=== PATIENT | female | born 1965 | race Caucasian/White ===

== ENCOUNTER → 2021-04-29 14:49 | Outpatient (BNVA) | payer OTHER, MEDICAID, SELFPAY | PROVIDERS: PCP Family Medicine; Referring Provider Family Medicine; Visit Provider Psychiatry & Neurology Neurology | DX: G43.109 Migraine with aura, not intractable, without status migrainosus (principal) | CPT/HCPCS: 64615; 99211 ==

== ENCOUNTER → 2021-06-20 09:51 | Outpatient (BNVA) | payer OTHER, MEDICAID, SELFPAY | PROVIDERS: PCP Family Medicine; Visit Provider Nurse Practitioner Family | DX: G43.109 Migraine with aura, not intractable, without status migrainosus (principal); M54.2 Cervicalgia; F41.9 Anxiety disorder, unspecified; Z79.899 Other long term (current) drug therapy | CPT/HCPCS: 99212 ==

== ENCOUNTER → 2021-08-21 11:04 | Outpatient (BNVA) | payer OTHER, MEDICAID, SELFPAY | PROVIDERS: PCP Family Medicine; Visit Provider Nurse Practitioner Family | DX: G43.109 Migraine with aura, not intractable, without status migrainosus (principal); M54.2 Cervicalgia; F41.9 Anxiety disorder, unspecified; Z79.899 Other long term (current) drug therapy | CPT/HCPCS: 99212 ==

== ENCOUNTER → 2021-09-18 09:32 | Outpatient (BNVA) | payer OTHER, MEDICAID, SELFPAY | PROVIDERS: PCP Family Medicine; Visit Provider Psychiatry & Neurology Neurology | DX: G43.109 Migraine with aura, not intractable, without status migrainosus (principal); M54.2 Cervicalgia | CPT/HCPCS: 64615; 99211; J0585 ==

== ENCOUNTER → 2021-11-06 13:39 | Outpatient (BNVA) | payer OTHER, MEDICAID, SELFPAY | PROVIDERS: PCP Family Medicine; Visit Provider Psychiatry & Neurology Neurology | DX: G43.109 Migraine with aura, not intractable, without status migrainosus (principal); G47.33 Obstructive sleep apnea (adult) (pediatric) | CPT/HCPCS: 99212 ==

== ENCOUNTER → 2022-01-22 13:31 | Outpatient (BNVA) | payer OTHER, SELFPAY | PROVIDERS: PCP Family Medicine; Visit Provider Psychiatry & Neurology Neurology | DX: G43.119 Migraine with aura, intractable, without status migrainosus (principal); M54.2 Cervicalgia | CPT/HCPCS: 64615; 99211; J0585 ==

== ENCOUNTER → 2022-05-04 08:44 | Outpatient (BNVA) | payer OTHER, SELFPAY | PROVIDERS: PCP Family Medicine; Visit Provider Psychiatry & Neurology Neurology | DX: G43.119 Migraine with aura, intractable, without status migrainosus (principal); M54.2 Cervicalgia | CPT/HCPCS: 64615; 99211; J0585 ==

== ENCOUNTER → 2022-08-06 13:56 | Outpatient (BNVA) | payer OTHER, SELFPAY | PROVIDERS: PCP Family Medicine; Visit Provider Psychiatry & Neurology Neurology | DX: G43.709 Chronic migraine without aura, not intractable, without status migrainosus (principal) | CPT/HCPCS: 64615; 99211; J0585 ==

== ENCOUNTER 2022-11-26 12:20 | Outpatient (AMB) | payer OTHER, SELFPAY ==
[2022-11-26 12:22] VITALS: BP 148/88; PULSE 83; O2SAT 98
--- NOTE | 2022-11-26 12:22 | A.OFFVIS_ITS ---
Intake Vital Signs 11/26/22 12:22 Height 4 ft 8 in BMI Reason not done Patient refused/unable BP 148/88 H Blood Pressure Location Lt brachial Position Sitting Pulse 83 Pulse Source Pulse Oximeter Pulse Oximetry (%) 98 Oxygen Delivery Method Room Air Intake Visit Reasons: Botox B&B-confirmed Intake Note: Pt presents in office for botox. Manager Of Supply Chain Required: No Allergies amoxicillin [Augmentin] Allergy (Unknown, Verified 11/26/22 12:25) Unknown clavulanic acid [Augmentin] Allergy (Unknown, Verified 11/26/22 12:25) Unknown Medication List - Last Reconciled 11/26/22 by Lisa Ac MD amlodipine 2.5 mg PO DAILY aspirin (Adult Aspirin Regimen) 81 mg PO DAILY cetirizine (Zyrtec) 10 mg PO DAILY PRN cyclobenzaprine 5 mg PO BEDTIME fluticasone propionate 50 mcg/actuation 1 spray intranasal DAILY hydroxyzine HCl 25 mg PO ONCE PRN lisinopril 20 mg PO DAILY omeprazole 20 mg PO DAILY 90 days onabotulinumtoxinA (Botox) 155 units IM rimegepant (Nurtec ODT) 75 mg PO Q OTHER DAY 30 days sertraline 25 mg PO DAILY 90 days HPI HPI Comments History of Present Illness Details ?Chronic Migraines. History of present illness: ? 57y/o female comes for treatment with botox. ??? Most frequent reported adverse reactions following injection of botox for chronic migraine include neck pain (9%), headache(5%), eyelid ptosis(4%), migraine(4%), muscular weakness(4%), musculuskeletal stiffness(4%), bronchitis(3%), injection site pain (3%), musculoskeletal pain(3%), myalgia(3%), facial paresis(2%), HTN(2%) and muscle spasms(2%) were discussed in detail. ??? Botulinum toxin typeA 200units Lot no C [id number] expiration Apr 2025 was diluted with 4 cc of normal saline . ??? Muscles injected- ??? Frontalis 4 sites ??? Procerus 1 site ??? Estate Manager- 2 sites ??? Temporalis- 8 sites ??? Occipitalis- 6 sites ??? Cervical paraspinals- 4 sites ??? Trapezius- 6 sites-10 units each ??? 5 units each in 31 site ??? Total use- 185units ??? Discarded-15units [facility] Medical History delivery delivered Chronic migraine without aura Family History Mother HTN (hypertension) Depression Degenerative arthritis Father HTN (hypertension) High cholesterol Gout Kidney failure History of quadruple bypass Social History Alcohol intake: current Alcohol intake frequency: holidays/special occasions only Patient Tobacco Use Status: Never used Tobacco Review of Systems ENT Reports Normal hearing present Neuro Reports Normal hearing present Physical Exam Vital Signs: Last Vital Signs Pulse 83 11/26/22 12:22 BP 148/88 H 11/26/22 12:22 Pulse Ox 98 11/26/22 12:22 Oxygen Delivery Method Room Air 11/26/22 12:22 Const General: cooperative and comfortable Nutritional Appearance: obese Orientation/consciousness: patient oriented x3 Neck Neck: Yes full ROM and Yes supple Resp Effort & Inspection: normal respiratory effort and able to speak in complete s entences Neuro General: patient oriented x3 Cranial nerves: Yes Bilaterally intact EOM present, Yes Normal facial strength present, Yes Midline tongue present, Yes Normal hearing present, Yes Ability to bilaterally rotate head present and Yes Ability to bilaterally elevate shoulders present Cognition (Neuro): normal cognition Gait exam (Neuro): Normal gait present Psych Appearance: grossly normal Mental Status: mental status grossly normal Speech and movement: Normal speech and movement present Office Procedures Botulinum toxin Injection 61571 - Migraine Procedure code (CPT) selection complete Office Meds onabotulinumtoxinA Performing Provider: Lisa Ac MD Administered by: Lisa Ac MD on 11/26/22 13:21 Dose Route Admin Location Lot Number Expiration Date NDC Director Of Corporate Responsibility 185 unit subcut [id number] 04/29/25 5775-9191-85 ALLERGAN/BOTOX Comments: see HPI Assessment & Plan Assessment & Plan (1) Chronic migraine without aura: Code(s): G43.709 - Chronic migraine without aura, not intractable, without status migrainosus Plan Patient tolerated the procedure well she will call with any new side effects Continue nurtec 75mg qod for breakthrough migraines Orders: Orders AMB Botulinum toxin Injection Today G43.709 - Chronic migraine without aura, not intractable, without status migrainosus Coding Level of Care Code Est Pt Level 1 (97931) Diagnoses Chronic migraine without aura G43.709 CPT Codes Botox Injection - Botox 3: 95520 - Migraine ([id number])
== END 2022-11-26 12:53 | disposition home or self-care (01) ==
PROVIDERS: Visit Provider Psychiatry & Neurology Neurology
DX: G43.709 Chronic migraine without aura, not intractable, without status migrainosus (principal)
CPT/HCPCS: 64615

== ENCOUNTER → 2022-11-26 12:20 | Outpatient (BNVA) | payer OTHER, SELFPAY | PROVIDERS: Visit Provider Psychiatry & Neurology Neurology | DX: G43.709 Chronic migraine without aura, not intractable, without status migrainosus (principal) | CPT/HCPCS: 64615; 99211; J0585 ==

== ENCOUNTER 2023-03-05 12:22 | Outpatient (AMB) | payer OTHER, SELFPAY ==
--- NOTE | 2023-03-05 12:35 | A.OFFVIS_ITS ---
Intake Vital Signs 03/05/23 12:36 Height 4 ft 8 in Weight 177 lb BMI 39.7 BP 160/110 H Blood Pressure Location Lt brachial Position Sitting Pulse 67 Pulse Source Pulse Oximeter Pulse Oximetry (%) 99 Oxygen Delivery Method Room Air Intake Visit Reasons: Botox B&B - Confirmed Allergies amoxicillin [Augmentin] Allergy (Unknown, Verified 03/05/23 12:38) Unknown clavulanic acid [Augmentin] Allergy (Unknown, Verified 03/05/23 12:38) Unknown Medication List - Last Reconciled 03/05/23 by Lisa Ac MD amlodipine 2.5 mg PO DAILY aspirin (Adult Aspirin Regimen) 81 mg PO DAILY cetirizine (Zyrtec) 10 mg PO DAILY PRN cyclobenzaprine 5 mg PO BEDTIME fluticasone propionate 50 mcg/actuation 1 spray intranasal DAILY hydroxyzine HCl 25 mg PO ONCE PRN lisinopril 20 mg PO DAILY omeprazole 20 mg PO DAILY 90 days onabotulinumtoxinA (Botox) 155 units IM rimegepant (Nurtec ODT) 75 mg PO Q OTHER DAY PRN sertraline 25 mg PO DAILY 90 days HPI HPI Comments History of Present Illness Details ?Chronic Migraines. History of present illness: ? 58y/o female comes for treatment with botox. ??? Most frequent reported adverse reactions following injection of botox for chronic migraine include neck pain (9%), headache(5%), eyelid ptosis(4%), migraine(4%), muscular weakness(4%), musculuskeletal stiffness(4%), bronchitis(3%), injection site pain (3%), musculoskeletal pain(3%), myalgia(3%), facial paresis(2%), HTN(2%) and muscle spasms(2%) were discussed in detail. ??? Botulinum toxin typeA 200units Lot no C [id number] expiration June 2025 was diluted with 4 cc of normal saline . ??? Muscles injected- ??? Frontalis 4 sites ??? Procerus 1 site ??? Transportation Lead- 2 sites ??? Temporalis- 8 sites ??? Occipitalis- 6 sites ??? Cervical paraspinals- 4 sites ??? Trapezius- 6 sites-10 units each ??? 5 units each in 31 site ??? Total use- 185units ??? Discarded-15units [facility] Medical History Chronic migraine without aura delivery delivered Family History Mother HTN (hypertension) Depression Degenerative arthritis Father HTN (hypertension) High cholesterol Gout Kidney failure History of quadruple bypass Social History Alcohol intake: current Alcohol intake frequency: holidays/special occasions only Patient Tobacco Use Status: Never used Tobacco Use of substances other than those prescribed or required for medical reasons: No Review of Systems ENT Reports Normal hearing present Neuro Reports Normal hearing present Physical Exam Vital Signs: Last Vital Signs Pulse 67 03/05/23 12:36 BP 160/110 H 03/05/23 12:36 Pulse Ox 99 03/05/23 12:36 Oxygen Delivery Method Room Air 03/05/23 12:36 BMI result Body Mass Index 39.7 Const General: cooperative and comfortable Nutritional Appearance: obese Orientation/consciousness: patient oriented x3 Neck Neck: Yes full ROM and Yes supple Resp Effort & Inspection: normal respiratory effort and able to speak in complete sentences Neuro General: patient oriented x3 Cranial nerves: Yes Bilaterally intact EOM present, Yes Normal facial strength present, Yes Midline tongue present, Yes Normal hearing present, Yes Ability to bilaterally rotate head present and Yes Ability to bilaterally elevate shoulders present Cognition (Neuro): normal cognition Gait exam (Neuro): Normal gait present Psych Appearance: grossly normal Mental Status: mental status grossly normal Speech and movement: Normal speech and movement present Office Procedures Botulinum toxin Injection 85163 - Migraine Procedure code (CPT) selection complete Office Meds onabotulinumtoxinA 200 unit solution for injection Performing Provider: Lisa Ac MD Performing Location: [facility] [place] [facility] Administered by: Lisa Ac MD on 03/05/23 13:06 Dose Route Admin Location Dispensed Lot Number Expiration Date [facility] Wader Boot Top Assembler 185 unit subcut 200 units [id number] 06/27/25 1440-6753-76 ALLERGAN/BOTOX Comments: see hpi Assessment & Plan Assessment & Plan (1) Chronic migraine without aura: Code(s): G43.709 - Chronic migraine without aura, not intractable, without status migrainosus Plan Patient tolerated the procedure well she will call with any new side effects Continue nurtec 75mg qod for breakthrough migraines Orders: Orders AMB Botulinum toxin Injection Today G43.709 - Chronic migraine without aura, not intractable, without status migrainosus Coding Level of Care Code Est Pt Level 1 (68784) Diagnoses Chronic migraine without aura G43.709 CPT Codes Botox Injection - Botox 3: 16078 - Migraine ([id number])
[2023-03-05 12:36] VITALS: BP 160/110; PULSE 67; O2SAT 99; BMI 39.7
== END 2023-03-05 13:15 | disposition home or self-care (01) ==
PROVIDERS: PCP Family Medicine; Visit Provider Psychiatry & Neurology Neurology
DX: G43.709 Chronic migraine without aura, not intractable, without status migrainosus (principal)
CPT/HCPCS: 64615

== ENCOUNTER → 2023-03-05 12:22 | Outpatient (BNVA) | payer OTHER, SELFPAY | PROVIDERS: PCP Family Medicine; Visit Provider Psychiatry & Neurology Neurology | DX: G43.709 Chronic migraine without aura, not intractable, without status migrainosus (principal) | CPT/HCPCS: 64615; 99211; J0585 ==

== ENCOUNTER 2023-06-03 12:28 | Outpatient (AMB) | payer OTHER, SELFPAY ==
--- NOTE | 2023-06-03 12:30 | MHC.OFFVIS ---
Intake Vital Signs 06/03/23 12:31 Height 4 ft 8 in Weight 175 lb BMI 39.2 BP 148/90 H Blood Pressure Location Rt brachial Position Sitting Respiration 16 Pulse 89 Pulse Source Pulse Oximeter Pulse Oximetry (%) 97 Oxygen Delivery Method Room Air Intake Visit Reasons: Botox B&B-confirmed Intake Note: Pt presents to the office for Botox injections. Tour Manager Required: No Allergies amoxicillin [Augmentin] Allergy (Unknown, Verified 06/03/23 12:31) Unknown clavulanic acid [Augmentin] Allergy (Unknown, Verified 06/03/23 12:31) Unknown Medication List - Last Reconciled 06/03/23 by Lisa Ac MD amlodipine 2.5 mg PO DAILY aspirin (Adult Aspirin Regimen) 81 mg PO DAILY cetirizine (Zyrtec) 10 mg PO DAILY PRN cyclobenzaprine 5 mg PO BEDTIME fluticasone propionate 50 mcg/actuation 1 spray intranasal DAILY hydroxyzine HCl 25 mg PO ONCE PRN lisinopril 20 mg PO DAILY omeprazole 20 mg PO DAILY 90 days onabotulinumtoxinA (Botox) 155 units IM rimegepant (Nurtec ODT) 75 mg PO Q OTHER DAY PRN sertraline 25 mg PO DAILY 90 days HPI HPI Comments History of Present Illness Details ?Chronic Migraines. History of present illness: ? 58y/o female comes for treatment with botox. ??? Most frequent reported adverse reactions following injection of botox for chronic migraine include neck pain (9%), headache(5%), eyelid ptosis(4%), migraine(4%), muscular weakness(4%), musculuskeletal stiffness(4%), bronchitis(3%), injection site pain (3%), musculoskeletal pain(3%), myalgia(3%), facial paresis(2%), HTN(2%) and muscle spasms(2%) were discussed in detail. ??? Botulinum toxin typeA 200units Lot no C [id number] expiration August 2025 was diluted with 4 cc of normal saline . ??? Muscles injected- ??? Frontalis 4 sites ??? Procerus 1 site ??? Mechanical Process Engineer- 2 sites ??? Temporalis- 8 sites ??? Occipitalis- 6 sites ??? Cervical paraspinals- 4 sites ??? Trapezius- 6 sites-10 units each ??? 5 units each in 31 site ??? Total use- 185units ??? Discarded-15units [facility] Medical History Chronic migraine without aura delivery delivered Family History Mother HTN (hypertension) Depression Degenerative arthritis Father HTN (hypertension) High cholesterol Gout Kidney failure History of quadruple bypass Social History Alcohol intake: current Alcohol intake frequency: holidays/special occasions only Patient Tobacco Use Status: Never used Tobacco Review of Systems ENT Reports Normal hearing present Neuro Reports Normal hearing present Physical Exam Vital Signs: Last Vital Signs Pulse 89 06/03/23 12:31 Resp 16 06/03/23 12:31 BP 148/90 H 06/03/23 12:31 Pulse Ox 97 06/03/23 12:31 Oxygen Delivery Method Room Air 06/03/23 12:31 BMI result Body Mass Index 39.2 Const General: cooperative and comfortable Nutritional Appearance: obese Orientation/consciousness: patient oriented x3 Neck Neck: Yes full ROM and Yes supple Resp Effort & Inspection: normal respiratory effort and able to speak in complete sentences Neuro General: patient oriented x3 Cranial nerves: Yes Bilaterally intact EOM present, Yes Normal facial strength present, Yes Midline tongue present, Yes Normal hearing present, Yes Ability to bilaterally rotate head present and Yes Ability to bilaterally elevate shoulders present Cognition (Neuro): normal cognition Gait exam (Neuro): Normal gait present Psych Appearance: grossly normal Mental Status: mental status grossly normal Speech and movement: Normal speech and movement present Office Procedures Botulinum toxin Injection 36460 - Migraine Procedure code (CPT) selection complete Office Meds onabotulinumtoxinA 200 unit solution for injection Performing Provider: Lisa Ac MD Performing Location: [facility] [place] [facility] Administered by: Lisa Ac MD on 06/03/23 12:57 Dose Route Admin Location Dispensed Lot Number Expiration Date [facility] Bonding Equipment Operator 185 unit subcut 200 units [id number] 08/27/25 7300-8120-36 ALLERGAN/BOTOX Comments: see HPI Assessment & Plan Assessment & Plan (1) Chronic migraine without aura: Code(s): G43.709 - Chronic migraine without aura, not intractable, without status migrainosus Plan Patient tolerated the procedure well she will call with any new side effects Continue nurtec 75mg qod for breakthrough migraines Orders: Orders AMB Botulinum toxin Injection Today G43.709 - Chronic migraine without aura, not intractable, without status migrainosus Coding Level of Care Code Tele Est Pt Level 1 (19597) Diagnoses Chronic migraine without aura G43.709 CPT Codes Botox Injection - Botox 3: 39747 - Migraine ([id number])
[2023-06-03 12:31] VITALS: BP 148/90; PULSE 89; RESP 16; O2SAT 97; BMI 39.2
== END 2023-06-03 12:53 | disposition home or self-care (01) ==
PROVIDERS: PCP Family Medicine; Visit Provider Psychiatry & Neurology Neurology
DX: G43.709 Chronic migraine without aura, not intractable, without status migrainosus (principal)
CPT/HCPCS: 64615; 99211

== ENCOUNTER → 2023-06-03 12:28 | Outpatient (BNVA) | payer OTHER, SELFPAY | PROVIDERS: PCP Family Medicine; Visit Provider Psychiatry & Neurology Neurology | DX: G43.709 Chronic migraine without aura, not intractable, without status migrainosus (principal) | CPT/HCPCS: 64615; J0585 ==

== ENCOUNTER 2023-09-08 12:52 | Outpatient (AMB) | payer OTHER, SELFPAY ==
[2023-09-08 13:01] VITALS: BP 150/90; PULSE 87; RESP 16; O2SAT 96; BMI 39.2
--- NOTE | 2023-09-08 13:01 | MHC.OFFVIS ---
Vital Signs 09/08/23 13:01 Height 4 ft 8 in Weight 175 lb BMI 39.2 BP 150/90 H Blood Pressure Location Rt brachial Position Sitting Respiration 16 Pulse 87 Pulse Source Pulse Oximeter Pulse Oximetry (%) 96 Oxygen Delivery Method Room Air Intake Visit Reasons: Botox - Confirmed Intake Note: Pt presents to the office for Botox injections. Gravure Press Set Up Operator Required: No Allergies amoxicillin [Augmentin] Allergy (Unknown, Verified 09/08/23 13:01) Unknown clavulanic acid [Augmentin] Allergy (Unknown, Verified 09/08/23 13:01) Unknown Medication List - Last Reconciled 09/08/23 by Lisa Ac MD amlodipine 2.5 mg PO DAILY aspirin (Adult Aspirin Regimen) 81 mg PO DAILY cetirizine (Zyrtec) 10 mg PO DAILY PRN cyclobenzaprine 5 mg PO BEDTIME fluticasone propionate 50 mcg/actuation 1 spray intranasal DAILY hydroxyzine HCl 25 mg PO ONCE PRN lisinopril 20 mg PO DAILY omeprazole 20 mg PO DAILY 90 days onabotulinumtoxinA (Botox) 155 units IM rimegepant (Nurtec ODT) 75 mg PO Q OTHER DAY PRN sertraline 25 mg PO DAILY 90 days HPI Comments Details: ?Chronic Migraines. History of present illness: ? 58y/o female comes for treatment with botox. ??? Most frequent reported adverse reactions following injection of botox for chronic migraine include neck pain (9%), headache(5%), eyelid ptosis(4%), migraine(4%), muscular weakness(4%), musculuskeletal stiffness(4%), bronchitis(3%), injection site pain (3%), musculoskeletal pain(3%), myalgia(3%), facial paresis(2%), HTN(2%) and muscle spasms(2%) were discussed in detail. ??? Botulinum toxin typeA 200units Lot no C [id number] expiration August 2025 was diluted with 4 cc of normal saline . ??? Muscles injected- ??? Frontalis 4 sites ??? Procerus 1 site ??? Retail Advertising Sales Manager- 2 sites ??? Temporalis- 8 sites ??? Occipitalis- 6 sites ??? Cervical paraspinals- 4 sites ??? Trapezius- 6 sites-10 units each ??? 5 units each in 31 site ??? Total use- 185units ??? Discarded-15units [facility] Medical History Chronic migraine without aura delivery delivered Family History Mother HTN (hypertension) Depression Degenerative arthritis Father HTN (hypertension) High cholesterol Gout Kidney failure History of quadruple bypass Social History Alcohol intake: current Alcohol intake frequency: holidays/special occasions only Patient Tobacco Use Status: Never used Tobacco Review of Systems ENT Reports Normal hearing present Neuro Reports Normal hearing present Physical Exam Vital Signs: Last Vital Signs Pulse 87 09/08/23 13:01 Resp 16 09/08/23 13:01 BP 150/90 H 09/08/23 13:01 Pulse Ox 96 09/08/23 13:01 Oxygen Delivery Method Room Air 09/08/23 13:01 BMI result Body Mass Index 39.2 Const General: cooperative and comfortable Nutritional Appearance: obese Orientation/consciousness: patient oriented x3 Neck Neck: Yes full ROM and Yes supple Resp Effort & Inspection: normal respiratory effort and able to speak in complete sentences Neuro General: patient oriented x3 Cranial nerves: Yes Bilaterally intact EOM present, Yes Normal facial strength present, Yes Midline tongue present, Yes Normal hearing present, Yes Ability to bilaterally rotate head present and Yes Ability to bilaterally elevate shoulders present Cognition (Neuro): normal cognition Gait exam (Neuro): Normal gait present Psych Appearance: grossly normal Mental Status: mental status grossly normal Speech and movement: Normal speech and movement present Office Procedures Botulinum toxin Injection 91680 - Migraine Procedure code (CPT) selection complete Office Meds onabotulinumtoxinA 200 unit solution for injection Performing Provider: Lisa Ac MD Performing Location: [facility] [place] [facility] Administered by: Lisa Ac MD on 09/08/23 13:26 Dose Route Admin Location Dispensed Lot Number Expiration Date [facility] Strategy Specialist 185 unit IM 200 units [id number] 08/27/25 2820-7963-65 ALLERGAN/BOTOX Comments: see HPI Assessment & Plan Assessment & Plan (1) Chronic migraine without aura: Code(s): G43.709 - Chronic migraine without aura, not intractable, without status migrainosus Category: Medical Plan Patient tolerated the procedure well she will call with any new side effects Continue nurtec 75mg qod for breakthrough migraines Orders: Orders AMB Botulinum toxin Injection Today G43.709 - Chronic migraine without aura, not intractable, without status migrainosus Medications: New onabotulinumtoxinA 200 units IM ONCE 1 ea 0RF G43.709 - Chronic migraine without aura, not intractable, without status migrainosus Coding Level of Care Code Est Pt Level 1 (38310) Diagnoses Chronic migraine without aura G43.709 CPT Codes Botox Injection - Botox 3: 32926 - Migraine ([id number])
== END 2023-09-08 15:47 | disposition home or self-care (01) ==
PROVIDERS: PCP Family Medicine; Visit Provider Psychiatry & Neurology Neurology
DX: G43.709 Chronic migraine without aura, not intractable, without status migrainosus (principal)
CPT/HCPCS: 64615

== ENCOUNTER → 2023-09-08 12:52 | Outpatient (BNVA) | payer OTHER, SELFPAY | PROVIDERS: PCP Family Medicine; Visit Provider Psychiatry & Neurology Neurology | DX: G43.709 Chronic migraine without aura, not intractable, without status migrainosus (principal) | CPT/HCPCS: 64615; 99211; J0585 ==

== ENCOUNTER 2024-01-03 14:10 | Outpatient (AMB) | payer OTHER, SELFPAY ==
--- NOTE | 2024-01-03 14:11 | A.OFFVIS_ITS ---
Vital Signs 01/03/24 14:12 Height 4 ft 8 in Weight 176 lb BMI 39.5 BP 158/98 H Blood Pressure Location Rt brachial Position Sitting Pulse 85 Pulse Source Pulse Oximeter Pulse Oximetry (%) 98 Oxygen Delivery Method Room Air Intake Visit Reasons: BOTOX Construction Administrative Assistant Required: No Accompanied by: Self / Same As Patient Allergies amoxicillin [Augmentin] Allergy (Unknown, Verified 01/03/24 14:13) Unknown clavulanic acid [Augmentin] Allergy (Unknown, Verified 01/03/24 14:13) Unknown Medication List - Last Reconciled 01/03/24 by Lisa Ac MD amlodipine 2.5 mg PO DAILY aspirin (Adult Aspirin Regimen) 81 mg PO DAILY cetirizine (Zyrtec) 10 mg PO DAILY PRN cyclobenzaprine 5 mg PO BEDTIME fluticasone propionate 50 mcg/actuation 1 spray intranasal DAILY hydroxyzine HCl 25 mg PO ONCE PRN lisinopril 20 mg PO DAILY omeprazole 20 mg PO DAILY 90 days onabotulinumtoxinA (Botox) 155 units IM rimegepant (Nurtec ODT) 75 mg PO Q OTHER DAY PRN sertraline 25 mg PO DAILY HPI Comments Details: ?Chronic Migraines. History of present illness: ? 59y/o female comes for treatment with botox. ??? Most frequent reported adverse reactions following injection of botox for chronic migraine include neck pain (9%), headache(5%), eyelid ptosis(4%), migraine(4%), muscular weakness(4%), musculuskeletal stiffness(4%), bronchitis(3%), injection site pain (3%), musculoskeletal pain(3%), myalgia(3%), facial paresis(2%), HTN(2%) and muscle spasms(2%) were discussed in detail. ??? Botulinum toxin typeA 200units Lot no [id number] expiration Feb 2026 was diluted with 4 cc of normal saline . ??? Muscles injected- ??? Frontalis 4 sites ??? Procerus 1 site ??? Certified Hearing Instrument Dispenser- 2 sites ??? Temporalis- 8 sites ??? Occipitalis- 6 sites ??? Cervical paraspinals- 4 sites ??? Trapezius- 6 sites-10 units each ??? 5 units each in 31 site ??? Total use- 185units ??? Discarded-15units [facility] Medical History Chronic migraine without aura delivery delivered Family History Mother HTN (hypertension) Depression Degenerative arthritis Father HTN (hypertension) High cholesterol Gout Kidney failure History of quadruple bypass Social History Alcohol intake: current Alcohol intake frequency: holidays/special occasions only Patient Tobacco Use Status: Never used Tobacco Review of Systems ENT Reports Normal hearing present Neuro Reports Normal hearing present Physical Exam Vital Signs: Last Vital Signs Pulse 85 01/03/24 14:12 BP 158/98 H 01/03/24 14:12 Pulse Ox 98 01/03/24 14:12 Oxygen Delivery Method Room Air 01/03/24 14:12 BMI result Body Mass Index 39.5 Const General: cooperative and comfortable Nutritional Appearance: obese Orientation/consciousness: patient oriented x3 Neck Neck: Yes full ROM and Yes supple Resp Effort & Inspection: normal respiratory effort and able to speak in complete sentences Neuro General: patient oriented x3 Cranial nerves: Yes Bilaterally intact EOM present, Yes Normal facial strength present, Yes Midline tongue present, Yes Normal hearing present, Yes Ability to bilaterally rotate head present and Yes Ability to bilaterally elevate shoulders present Cognition (Neuro): normal cognition Gait exam (Neuro): Normal gait present Psych Appearance: grossly normal Mental Status: mental status grossly normal Speech and movement: Normal speech and movement present Office Procedures Botulinum toxin Injection 74457 - Migraine Procedure code (CPT) selection complete Office Meds onabotulinumtoxinA 200 unit solution for injection Performing Provider: Lisa Ac MD Performing Location: [facility] [place] [facility] Administered by: Lisa Ac MD on 01/03/24 14:59 Dose Route Admin Location Dispensed Lot Number Expiration Date [facility] Cook Relief 200 unit subcut 200 units [id number] 02/26/26 3975-7479-67 ALLERGAN/BOTOX Comments: see HPI Assessment & Plan Assessment & Plan (1) Chronic migraine without aura: Code(s): G43.709 - Chronic migraine without aura, not intractable, without status migrainosus Category: Medical Qualifiers: Status migrainosus presence: without status migrainosus Intractability: intractable Qualified Code(s): G43.719 - Chronic migraine without aura, intractable, without status migrainosus Plan Patient tolerated the procedure well she will call with any new side effects Continue nurtec 75mg qod for breakthrough migraines Orders: Orders AMB Botulinum toxin Injection Today G43.719 - Chronic migraine without aura, intractable, without status migrainosus Medications: New onabotulinumtoxinA 200 units subcut ONCE 1 ea 0RF migraine G43.719 - Chronic migraine without aura, intractable, without status migrainosus Coding Level of Care Code Est Pt Level 1 (67886) Diagnoses Intractable chronic migraine without aura and without status migrainosus G43.719 Status migrainosus presence: without status migrainosus Intractability: intractable CPT Codes Botox Injection - Botox 3: 66358 - Migraine ([id number])
[2024-01-03 14:12] VITALS: BP 158/98; PULSE 85; O2SAT 98; BMI 39.5
== END 2024-01-03 14:40 | disposition home or self-care (01) ==
PROVIDERS: PCP Family Medicine; Visit Provider Psychiatry & Neurology Neurology
DX: G43.719 Chronic migraine without aura, intractable, without status migrainosus (principal)
CPT/HCPCS: 64615

== ENCOUNTER → 2024-01-03 14:10 | Outpatient (BNVA) | payer OTHER, SELFPAY | PROVIDERS: PCP Family Medicine; Visit Provider Psychiatry & Neurology Neurology | DX: G43.719 Chronic migraine without aura, intractable, without status migrainosus (principal) | CPT/HCPCS: 64615; 99211; J0585 ==

== ENCOUNTER 2024-04-04 15:34 | Outpatient (AMB) | payer OTHER, SELFPAY ==
--- NOTE | 2024-04-04 15:37 | A.OFFVIS_ITS ---
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 Accompanied by: Self / Same As Patient Allergies amoxicillin [Augmentin] Allergy (Unknown, Verified 04/04/24 15:40) Unknown clavulanic acid [Augmentin] Allergy (Unknown, Verified 04/04/24 15:40) Unknown Medication List - Last Reconciled 04/05/24 by Lisa Ac MD amlodipine 2.5 mg PO DAILY aspirin (Adult Aspirin Regimen) 81 mg PO DAILY cetirizine (Zyrtec) 10 mg PO DAILY PRN cyclobenzaprine 5 mg PO BEDTIME fluticasone propionate 50 mcg/actuation 1 spray intranasal DAILY hydroxyzine HCl 25 mg PO ONCE PRN lisinopril 20 mg PO DAILY mirtazapine 7.5 mg PO BEDTIME omeprazole 20 mg PO DAILY 90 days onabotulinumtoxinA (Botox) 155 units IM rimegepant (Nurtec ODT) 75 mg PO Q OTHER DAY PRN sertraline 50 mg PO DAILY Do you need a note to return to daycare/school/sports/work: No HPI Comments Details: ?Chronic Migraines. History of present illness: ? 59y/o female comes for treatment with botox. ??? Most frequent reported adverse reactions following injection of botox for chronic migraine include neck pain (9%), headache(5%), eyelid ptosis(4%), migr nae(4%), muscular weakness(4%), musculuskeletal stiffness(4%), bronchitis(3%), injection site pain (3%), musculoskeletal pain(3%), myalgia(3%), facial paresis(2%), HTN(2%) and muscle spasms(2%) were discussed in detail. ??? Botulinum toxin typeA 200units Lot no [id number] expiration Feb 2026 was diluted with 4 cc of normal saline . ??? Muscles injected- ??? Frontalis 4 sites ??? Procerus 1 site ??? Application Security Architect- 2 sites ??? Temporalis- 8 sites ??? Occipitalis- 6 sites ??? Cervical paraspinals- 4 sites ??? Trapezius- 6 sites-10 units each ??? 5 units each in 31 site ??? Total use- 185units ??? Discarded-15units [facility] Medical History Chronic migraine without aura delivery delivered Family History Mother HTN (hypertension) Depression Degenerative arthritis Father HTN (hypertension) High cholesterol Gout Kidney failure History of quadruple bypass Social History Alcohol intake: current Alcohol intake frequency: holidays/special occasions only Patient Tobacco Use Status: Never used Tobacco Review of Systems ENT Reports Normal hearing present Neuro Reports Normal hearing present Physical Exam Vital Signs: Last Vital Signs Pulse 94 04/04/24 15:38 BP 150/100 H 04/04/24 15:38 Pulse Ox 98 04/04/24 15:38 Oxygen Delivery Method Room Air 04/04/24 15:38 BMI result Body Mass Index 38.3 Const General: cooperative and comfortable Nutritional Appearance: obese Orientation/consciousness: patient oriented x3 Neck Neck: Yes full ROM and Yes supple Resp Effort & Inspection: normal respiratory effort and able to speak in complete sentences Neuro General: patient oriented x3 Cranial nerves: Yes Bilaterally intact EOM present, Yes Normal facial strength present, Yes Midline tongue present, Yes Normal hearing present, Yes Ability to bilaterally rotate head present and Yes Ability to bilaterally elevate shoulders present Cognition (Neuro): normal cognition Gait exam (Neuro): Normal gait present Psych Appearance: grossly normal Mental Status: mental status grossly normal Speech and movement: Normal speech and movement present Office Procedures Botulinum toxin Injection 08975 - Migraine Procedure code (CPT) selection complete Office Meds onabotulinumtoxinA 200 unit solution for injection Performing Provider: Lisa Ac MD Performing Location: [facility] Administered by: Lisa Ac MD on 04/05/24 12:37 Dose Route Admin Location Dispensed Lot Number Expiration Date [facility] 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 185 unit IM 200 units 0212-1329-14 ALLERGAN/BOTOX Comments: see HPI Assessment & Plan Assessment & Plan (1) Chronic migraine without aura: Code(s): G43.709 - Chronic migraine without aura, not intractable, without status migrainosus Category: Medical Qualifiers: Status migrainosus presence: without status migrainosus Intractability: intractable Qualified Code(s): G43.719 - Chronic migraine without aura, intractable, without status migrainosus Plan Patient tolerated the procedure well she will call with any new side effects Continue nurtec 75mg qod for breakthrough migraines Orders: Orders AMB Botulinum toxin Injection 04/04/24 G43.719 - Chronic migraine without aura, intractable, without status migrainosus Medications: New mirtazapine 7.5 mg PO BEDTIME 30 tabs 3RF onabotulinumtoxinA 200 units IM ONCE 1 ea 0RF migraine G43.719 - Chronic migraine without aura, intractable, without status migrainosus Coding Level of Care Code Est Pt Level 1 (28423) Diagnoses Intractable chronic migraine without aura and without status migrainosus G43.719 Status migrainosus presence: without status migrainosus Intractability: intractable CPT Codes Botox Injection - Botox 3: 74914 - Migraine ([id number])
[2024-04-04 15:38] VITALS: BP 150/100; PULSE 94; O2SAT 98; BMI 38.3
== END 2024-04-04 16:03 | disposition home or self-care (01) ==
PROVIDERS: PCP Family Medicine; Visit Provider Psychiatry & Neurology Neurology
DX: G43.719 Chronic migraine without aura, intractable, without status migrainosus (principal)
CPT/HCPCS: 64615

== ENCOUNTER → 2024-04-04 15:34 | Outpatient (BNVA) | payer OTHER, SELFPAY | PROVIDERS: PCP Family Medicine; Visit Provider Psychiatry & Neurology Neurology | DX: G43.719 Chronic migraine without aura, intractable, without status migrainosus (principal) | CPT/HCPCS: 64615; 99211; J0585 ==

== ENCOUNTER 2024-05-12 14:02 | Outpatient (AMB) | payer OTHER, SELFPAY ==
--- OUTSIDE RECORDS SUMMARY | 2024-05-12 14:06 | XMS_ITS | Patient Health Record ---
Author Organization [facility] Address [address] [place] [address] Care Team Providers Care Applications Coordinator Name Role Phone AudreyMario Primary Care Provider [phone] Unavailable Unavailable Allergies Allergen (clinical drug ingredient) Drug/Non Drug Allergy documented on EMR Reaction Allergy Type Onset Date Status Erythromycin rash Drug Allergy Acti ve Reason For Referral No Information Medications Medication SIG (Take, Route, Frequency, Duration) Notes Start Date End Date Status Flonase Allergy Relief 50 MCG/ACT 1 spray in each nostril Nasally Once a day Active Fish Oil Paauilo-3 1000 MG 1 capsule Orall y Once a day Active Vitamin B12 100 MCG as directed Orally O nce a day Active Cetirizine HCl 10 MG 1 tablet Orally Onc e a day Active hydrOXYzine HCl 25 MG 1 tablet as needed Orally qhs Active Mzetbithjk-FGEE-Sruqqtja 50-300-40 MG 1 tablet as needed Orally every 4 hrs Active Lisinopril 20 MG 1 tablet Orally qam Active SUMAtriptan Succinate 100 MG 1 tablet at least 2 hours between doses as needed Orally along with 2 ibuprofen Active Rosuvastatin Calcium 5 MG 1 tablet Orally qhs Active acetaZOLAMIDE 250 MG 2 tablet Orally twi ce a day for 30 day(s) Active Aspirin 81 MG 1 tablet Orally Once a day Active Magnesium Oxide 400 MG 1 tablet as neede d Orally Once a day Active Topiramate 100 MG 1 tablet Orally qhs Active Cyclobenzaprine HCl 5 MG 1 tablet at bed time as needed Orally Once a day Active Social History Tobacco Use: Social History Observation Description Date Details (start date - stop date) Never Smoker NA - NA Household Question Answer Notes Marital status: Lives w/ and daughter. 1 dog. Number of adults in household: 3 Tobacco Use/Smoking Question Answer Notes Tobacco use: nonsmoker Problems Problem Type SNOMED Code ICD Code Onset Dates Problem Status W/U Status Risk Notes Problem New daily persistent headache (87856158775119 5) New daily persistent headache (NDPH) (G44.52) Active confirmed Plan Of Treatment Pending Test Test Name Order Date MRI/MRA Head 12/19/2020 Insurance Providers Payer Name Payer Address Payer Phone Subscriber Number Group Number Insured Name Patient Relationship to Insured Coverage Start Date Coverage End Date [facility] [employer] PL[facility] [address] [address] [id number] Maya Dodge Self - patient is the insured Medical (General) History Medical History History ICD Code hypercholesterolemia essential HTN LAUREN renal angiolipoma ovarian cysts Surgical History Surgery Date(Month/Year) section x 2
--- NOTE | 2024-05-12 14:12 | MHC.OFFVIS ---
Vital Signs 05/12/24 14:13 Height 4 ft 8 in Weight 172 lb BMI 38.6 BP 146/110 H Blood Pressure Location Lt brachial Position Sitting Pulse 97 Pulse Source Pulse Oximeter Pulse Oximetry (%) 97 Oxygen Delivery Method Room Air Intake Visit Reasons: Follow Up Accompanied by: Spouse Allergies amoxicillin [Augmentin] Allergy (Unknown, Verified 05/12/24 14:14) Unknown clavulanic acid [Augmentin] Allergy (Unknown, Verified 05/12/24 14:14) Unknown Medication List - Last Reconciled 05/12/24 by CRICKET Gonsalez amlodipine 2.5 mg PO DAILY aspirin (Adult Aspirin Regimen) 81 mg PO DAILY cetirizine (Zyrtec) 10 mg PO DAILY PRN cyclobenzaprine 5 mg PO BEDTIME fluticasone propionate 50 mcg/actuation 1 spray intranasal DAILY hydroxyzine HCl 25 mg PO ONCE PRN lisinopril 20 mg PO DAILY mirtazapine 7.5 mg PO BEDTIME omeprazole 20 mg PO DAILY 90 days onabotulinumtoxinA (Botox) 155 units IM rimegepant (Nurtec ODT) 75 mg PO Q OTHER DAY PRN sertraline 75 mg (1.5 x 50 mg) PO DAILY 30 days HPI Comments Details: 59-yr-old female presents for f/u visit for chronic migraine and dizziness. Pt is accompanied by her . Patient comes to discuss strategies to optimize her headache and dizziness treatment plan. She states optimizing the dizziness would be her priority at this point. Pt reports she continues to wake up every day with a headache. Headache and dizziness worsen as the day progresses, sometimes laying down helps but not always. Baseline headache characteristics: Mostly bifrontal/temporla squeezing, or bilateral frontal, retroorbital, occipital squeezing a/w rare sees kaleidoscope aura (3 times in all), photophobia, phonophobia, osmophobia, allodynia, nausea, worsening dizziness, brain fog, activity intolerance. Denies positional component. She also has episodes of intense, sharp, stabbing pain in random areas around her head. Sometimes her head feels like there is popping inside. She has chronic neck pain and tightness- has been told she has arthritis in the past. The Botox helps to decrease the level of the pain, and the pain increases towards the botox cycle. She is taking Nurtec every other day. Sertraline was increased to 50mg in Jan- did not help depression or dizziness- notes that her father had shortly thereafter.. She was started on mirtazapine 7.5 mg q.h.s. in early March, this has helped her sleep. 32oz iced black tea. Also takes water 64 ounces- approx. She is using her CPAP nightly. PCP ordered brain MRI without contrast in March 2024, which was unremarkable. Since Jan 2024, she has also been having frequent episodes of dizziness- where she feels off-balance, like she will fall over, like someone is pushing her from behind. She has not fallen- but has caught herself. Dizziness is worse when the headaches are worse and are a/w nausea. She believes that the dizziness started after she cleaned out her father's room in her parent's house, which at/has significant mold growth. She does use Flonase and an OTC Afrin- regularly since the onset of the dizziness. She has not had vestibular tx yet. States it would be difficult for her to arrange this, as she has been caring for her mother who has Alzheimer's dementia. [facility] Medical History (Updated 05/12/24 @ 16:28 by CRICKET Gonsalez) Chronic migraine with aura Chronic migraine without aura delivery delivered Family History Mother HTN (hypertension) Depression Degenerative arthritis Father HTN (hypertension) High cholesterol Gout Kidney failure History of quadruple bypass Social History Alcohol intake: current Alcohol intake frequency: holidays/special occasions only Patient Tobacco Use Status: Never used Tobacco Physical Exam Vital Signs: Last Vital Signs Pulse 97 05/12/24 14:13 BP 146/110 H 05/12/24 14:13 Pulse Ox 97 05/12/24 14:13 Oxygen Delivery Method Room Air 05/12/24 14:13 BMI result Body Mass Index 38.6 Const General: cooperative and no acute distress Orientation/consciousness: patient oriented x3 Resp Effort & Inspection: normal respiratory effort and able to speak in complete sentences Neuro Other: Bilateral posterior cervical tightness, limited cervical range of motion. General: patient oriented x3 Cranial nerves: Yes CN's II-XII intact bilaterally Cognition (Neuro): normal cognition Deep tendon reflexes (DTR's): Right triceps reflex intensity grade: 2+, Left triceps reflex intensity grade: 2+, Rt Biceps (C5, C6): 2+, Left biceps reflex intensity grade: 2+, Right brachioradialis reflex intensity grade: 2+, Left brachioradialis reflex intensity grade: 2+, Right patellar reflex intensity grade: 2+ and Left patellar reflex intensity grade: 3+ Psych Appearance: grossly normal Mental Status: mental status grossly normal Speech and movement: Normal speech and movement present Affect: normal affect Attitude: cooperative Assessment & Plan Assessment & Plan (1) Chronic migraine without aura: Code(s): G43.709 - Chronic migraine without aura, not intractable, without status migrainosus Category: Medical Qualifiers: Status migrainosus presence: without status migrainosus Intractability: intractable Qualified Code(s): G43.719 - Chronic migraine without aura, intractable, without status migrainosus (2) Chronic migraine with aura: Code(s): G43.109 - Migraine with aura, not intractable, without status migrainosus Category: Medical (3) Cervicalgia of txbupeda-lcpiiui-xrhjk region: Code(s): M54.2 - Cervicalgia Category: Medical (4) Vertigo: Code(s): R42 - Dizziness and giddiness Category: Medical Plan Reviewed Mar 2024 brain MRI without contrast report- unremarkable. Reviewed previous 06/04/2021 MRA, MRV- normal. We have advised you to have the following exams: XR C-spine with flexion extension. Future considerations: Brain MRI with and without contrast with thanh score. Vestibular therapy when patient is able to do so. For overall headache management: It is important to practice good self-care, including but not limited to eating a healthy diet, drinking enough fluids (typically 64 oz per day), maintaining a good sleep routine, and engaging in regular physical activity (typically 30-45 minutes of moderate physical activity 5 days per week). Track headaches Information shared on nonpharmacological migraine treatment interventions, including strategies to reduce photophobia; and information on neuromodulation devices. For dizziness: Trial optimizing nasal congestion symptoms- Saline nasal spray q.h.s. Followed by fluconazole nasal spray Followed by Azalastine 1-2 sprays daily-twice a day Stop OTC Afrin. For acute headache treatment: Continue Rimegepant ODT (Nurtec ODT) 75mg, 1 tab at onset of headache.. Max of 1 tabs (75mg) per 24 hours. May adjunct with OTC Tylenol 650mg q 4 hours, Ibuprofen 600mg q 6 hours, or Naproxen 440mg q 12 hrs prn. Previous acute migraine medication trials: Sumatriptan injection- made her feel weird all over. Acute migraine medication contraindications: Triptans and DHE at this time due to HTN- poorly controlled. For headache prevention medication: Continue Botox untreated 55 units IM every 12 weeks. Increase sertraline from 50 mg daily to 75 mg daily- in hopes this reduces vestibular migraine symptoms. Continue mirtazapine 7.5 mg q.h.s.- primarily for sleep. Continue cyclobenzaprine 5 mg q.h.s. p.r.n.. Previous migraine prevention medication trials: Ajovy-not fully effective. Patient has tried other medications in the past, we will need to confirm them. Migraine prevention medication contraindications: None at this time. Future considerations: Trial of verapamil, candesartan, memantine, retry Ajovy with Botox (alternating 1 with the other every 6 weeks), Qulipta. Orders: Orders XR cervical spine w flex/ext Today M54.2 - Cervicalgia Medications: New azelastine administer into each nostril 2 sprays intranasal BID 30 days 8.22 mL 3RF Changed From sertraline 50 mg PO DAILY 30 tabs 3RF To sertraline 75 mg (1.5 x 50 mg) PO DAILY 30 days 45 tabs 3RF Coding Level of Care Code Est Pt Level 4 (48743) Complex EM visit Add On G2211 Diagnoses Intractable chronic migraine without aura and without status migrainosus G43.719 Status migrainosus presence: without status migrainosus Intractability: intractable Chronic migraine with aura G43.109 Cervicalgia of bkandudj-mdjtqur-juwoi region M54.2 Vertigo R42
[2024-05-12 14:13] VITALS: BP 146/110; PULSE 97; O2SAT 97; BMI 38.6
== END 2024-05-12 15:18 | disposition home or self-care (01) ==
PROVIDERS: PCP Family Medicine; Visit Provider Nurse Practitioner Family
DX: G43.719 Chronic migraine without aura, intractable, without status migrainosus (principal); G43.109 Migraine with aura, not intractable, without status migrainosus; M54.2 Cervicalgia; R42 Dizziness and giddiness
CPT/HCPCS: 99214; G2211

== ENCOUNTER → 2024-05-12 14:02 | Outpatient (BNVA) | payer OTHER, SELFPAY | PROVIDERS: PCP Family Medicine; Visit Provider Nurse Practitioner Family | DX: G43.E09 Chronic migraine with aura, not intractable, without status migrainosus (principal); M54.2 Cervicalgia; R42 Dizziness and giddiness | CPT/HCPCS: 99212 ==

== ENCOUNTER 2024-07-05 12:42 | Outpatient (REF) | payer OTHER, SELFPAY ==
--- NOTE | ~2024-07-05 | MR_ITS ---
EXAMINATION: MR BRAIN WITHOUT AND WITH CONTRAST CLINICAL INFORMATION: Headache. Orthostatic compartment. COMPARISON: MRI from an outside institution dated April 13, 2024. TECHNIQUE: Multiplanar, multisequence MRI of the brain was obtained before and after the intravenous administration of 8 mL gadolinium based (Gadavist) without reported immediate complications.. FINDINGS: Patient's motion artifact. No restricted diffusion. No acute intracranial hemorrhage, mass effect, midline shift, hydrocephalus or herniation. Mccoy-white matter differentiation is normal. Posterior cranial fossa contents demonstrated no signal abnormality or gross masses. Flow-void signal within the main cerebral vessels is normal. The cochlear and vestibular components of the 8th cranial nerves demonstrated no signal abnormality or enhancing mass. Sellar/suprasellar region demonstrated no signal abnormality or enhancing lesion. Craniocervical junction is intact and normal. Midline structures are normal. No abnormal enhancing lesion within the intra-axial or the extra-axial compartment of the cranium. Probable artifactual punctate signal on the axial T1 postcontrast left basal ganglia. Small susceptibility signal right singular gyrus region and questionable anterior right temporal lobe. Focal 4 mm intrinsic hyperintense T1 signal in the diploe of the left occipital bone, probable fatty lesion/signal. No enhancing lesion within the intra-intraconal or extraconal compartments of the orbits. Prominence of the extra-axial CSF spaces cerebral sulci and ventricles. MR/MR head/brain wo/w con IMPRESSION: No acute brain abnormality. No gross enhancing lesion and or mass. 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 Electronically signed by: Dragan Turner MD 07/05/2024 03:51 PM EDT
[2024-07-05] MEDS: gadobutroL 10 ML VIAL IVPUSH (14:16)
--- OUTSIDE RECORDS SUMMARY | 2024-07-05 14:43 | XMS_ITS | Patient Health Record ---
Author Organization [facility] Address [address] [place] [address] Care Team Providers Care Tape Editor Name Role Phone AudreyMario Primary Care Provider Gal Palma Unavailable Unavailable Allergies Allergen (clinical drug ingredient) Drug/Non Drug Allergy documented on EMR Reaction Allergy Type Onset Date Status erythromycin Erythromycin rash Drug Allergy A ctive Reason For Referral No Information Medications Medication SIG (Take, Route, Frequency, Duration) Notes Start Date End Date Status Flonase Allergy Relief 50 MCG/ACT 1 spray in each nostril Nasally Once a day Active Fish Oil Mcewen-3 1000 MG 1 capsule Orall y Once a day Active Vitamin B12 100 MCG as directed Orally O nce a day Active Cetirizine HCl 10 MG 1 tablet Orally Onc e a day Active hydrOXYzine HCl 25 MG 1 tablet as needed Orally qhs Active Pxdxrmxcge-TIIA-Pwqydggd 50-300-40 MG 1 tablet as needed Orally [...] Risk Notes Problem New daily persistent headache ([id number] 5) New daily persistent headache (NDPH) (G44.52) Active confirmed Plan Of Treatment Pending Test Test Name Order Date MRI/MRA Head 12/19/2020 Insurance Providers Payer Name Payer Address Payer Phone Subscriber Number Group Number Insured Name Patient Relationship to Insured Coverage Start Date Coverage End Date [facility] / [facility] [place] [employer] [address] [address] [id number] Maya Dodge Self - patient is the insured Medical (General) History Medical History History ICD Code hypercholesterolemia essential HTN LAUREN renal angiolipoma ovarian cysts Surgical History Surgery Date(Month/Year) section x 2
== END 2024-07-05 12:43 | disposition home or self-care (01) ==
LOC: HO.MRI 12:42
PROVIDERS: PCP Family Medicine; Visit Provider Nurse Practitioner Family
DX: R51.0 Headache with orthostatic component, not elsewhere classified (principal); R42 Dizziness and giddiness
CPT/HCPCS: 70553; A9585

== ENCOUNTER → 2024-07-05 12:50 | Outpatient (BNV) | payer OTHER, SELFPAY | PROVIDERS: PCP Family Medicine; Visit Provider Radiology Diagnostic Radiology | DX: R51.9 Headache, unspecified (principal) | CPT/HCPCS: 70553 ==

== ENCOUNTER 2024-07-11 15:35 | Outpatient (AMB) | payer OTHER, SELFPAY ==
--- NOTE | 2024-07-11 15:43 | MHC.OFFVIS ---
Vital Signs 07/11/24 15:45 Height 4 ft 8 in Weight 173 lb BMI 38.8 Pulse 88 Pulse Source Pulse Oximeter Pulse Oximetry (%) 98 Oxygen Delivery Method Room Air Intake Visit Reasons: Botox Intake Note: Patient presents for botox injection. practice supplied Allergies amoxicillin [Augmentin] Allergy (Unknown, Verified 07/11/24 15:45) Unknown clavulanic acid [Augmentin] Allergy (Unknown, Verified 07/11/24 15:45) Unknown Medication List - Last Reconciled 07/11/24 by Lisa Ac MD amlodipine 5 mg PO DAILY aspirin (Adult Aspirin Regimen) 81 mg PO DAILY azelastine 2 sprays intranasal BID 30 days cetirizine (Zyrtec) 10 mg PO DAILY PRN cyclobenzaprine 5 mg PO BEDTIME fluticasone propionate 50 mcg/actuation 1 spray intranasal DAILY hydroxyzine HCl 25 mg PO ONCE PRN lisinopril 20 mg PO DAILY mirtazapine 7.5 mg PO BEDTIME omeprazole 20 mg PO DAILY 90 days onabotulinumtoxinA (Botox) 155 units IM rimegepant (Nurtec ODT) 75 mg PO Q OTHER DAY PRN sertraline 75 mg (1.5 x 50 mg) PO DAILY 30 days HPI Comments Details: ?Chronic Migraines. History of present illness: ? 59y/o female comes for treatment with botox. ??? Most frequent reported adverse reactions following injection of botox for chronic migraine include neck pain (9%), headache(5%), eyelid ptosis(4%), migraine(4%), muscular weakness(4%), musculuskeletal stiffness(4%), bronchitis(3%), injection site pain (3%), musculoskeletal pain(3%), myalgia(3%), facial paresis(2%), HTN(2%) and muscle spasms(2%) were discussed in detail. ??? Botulinum toxin typeA 200units Lot no [id number] expiration June 2026 was diluted with 4 cc of normal saline . ??? Muscles injected- ??? Frontalis 4 sites ??? Procerus 1 site ??? Social Organization Professor- 2 sites ??? Temporalis- 8 sites ??? Occipitalis- 6 sites ??? Cervical paraspinals- 4 sites ??? Trapezius- 6 sites-10 units each ??? 5 units each in 31 site ??? Total use- 185units ??? Discarded-15units [facility] Medical History Chronic migraine with aura Chronic migraine without aura delivery delivered Family History Mother HTN (hypertension) Depression Degenerative arthritis Father HTN (hypertension) High cholesterol Gout Kidney failure History of quadruple bypass Social History Alcohol intake: current Alcohol intake frequency: holidays/special occasions only Patient Tobacco Use Status: Never used Tobacco Review of Systems ENT Reports Normal hearing present Neuro Reports Normal hearing present Physical Exam Vital Signs: Last Vital Signs Pulse 88 07/11/24 15:45 Pulse Ox 98 07/11/24 15:45 Oxygen Delivery Method Room Air 07/11/24 15:45 BMI result Body Mass Index 38.8 Const General: cooperative and comfortable Nutritional Appearance: obese Orientation/consciousness: patient oriented x3 Neck Neck: Yes full ROM and Yes supple Resp Effort & Inspection: normal respiratory effort and able to speak in complete sentences Neuro General: patient oriented x3 Cranial nerves: Yes Bilaterally intact EOM present, Yes Normal facial strength present, Yes Midline tongue present, Yes Normal hearing present, Yes Ability to bilaterally rotate head present and Yes Ability to bilaterally elevate shoulders present Cognition (Neuro): normal cognition Gait exam (Neuro): Normal gait present Psych Appearance: grossly normal Mental Status: mental status grossly normal Speech and movement: Normal speech and movement present Office Procedures Botulinum toxin Injection 05117 - Migraine Procedure code (CPT) selection complete Office Meds onabotulinumtoxinA 200 unit solution for injection Performing Provider: Lisa Ac MD Performing Location: [facility] Administered by: Lisa Ac MD on 07/11/24 16:15 Dose Route Admin Location Dispensed Lot Number Expiration Date [facility] 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 185 unit subcut 200 units [id number] ALLERGAN/BOTOX Comments: see HPI Assessment & Plan Assessment & Plan (1) Chronic migraine without aura: Code(s): G43.709 - Chronic migraine without aura, not intractable, without status migrainosus Category: Medical Qualifiers: Status migrainosus presence: without status migrainosus Intractability: intractable Qualified Code(s): G43.719 - Chronic migraine without aura, intractable, without status migrainosus Plan Patient tolerated the procedure well she will call with any side effects Orders: Orders AMB Botulinum toxin Injection Today G43.719 - Chronic migraine without aura, intractable, without status migrainosus Medications: New onabotulinumtoxinA 200 units subcut ONCE 1 ea 0RF migraine G43.719 - Chronic migraine without aura, intractable, without status migrainosus Refilled mirtazapine 7.5 mg PO BEDTIME 30 tabs 6RF Coding Level of Care Code Est Pt Level 1 (92320) Diagnoses Intractable chronic migraine without aura and without status migrainosus G43.719 Status migrainosus presence: without status migrainosus Intractability: intractable CPT Codes Botox Injection - Botox 3: 88066 - Migraine ([id number])
[2024-07-11 15:45] VITALS: PULSE 88; O2SAT 98; BMI 38.8
--- OUTSIDE RECORDS SUMMARY | 2024-07-11 18:41 | XMS_ITS | Patient Health Record ---
Author Organization [facility] Address [address] [place] [address] Care Team Providers Care Rehab Director Occupational Therapist Name Role Phone AudreyMario Primary Care Provider [phone] Unavailable Unavailable Allergies Allergen (clinical drug ingredient) Drug/Non Drug Allergy documented on EMR Reaction Allergy Type Onset Date Status erythromycin Erythromycin rash Drug Allergy A ctive Reason For Referral No Information Medications Medication SIG (Take, Route, Frequency, Duration) Notes Start Date End Date Status Flonase Allergy Relief 50 MCG/ACT 1 spray in each nostril Nasally Once a day Active Fish Oil [place]-3 1000 MG 1 capsule Orall y Once a day Active Vitamin B12 100 MCG as directed Orally O nce a day Active Cetirizine HCl 10 MG 1 tablet Orally Onc e a day Active hydrOXYzine HCl 25 MG 1 tablet as needed Orally qhs Active Jtfshdjvyr-PYMC-Ganepybv 50-300-40 MG 1 tablet as needed Orally [...] Risk Notes Problem New daily persistent headache ([id number] 5) New daily persistent headache (NDPH) (G44.52) Active confirmed Plan Of Treatment Pending Test Test Name Order Date MRI/MRA Head 12/19/2020 Insurance Providers Payer Name Payer Address Payer Phone Subscriber Number Group Number Insured Name Patient Relationship to Insured Coverage Start Date Coverage End Date [employer] / [facility] [employer] PLAN [address] [address] [id number] Maya Dodge Self - patient is the insured Medical (General) History Medical History History ICD Code hypercholesterolemia essential HTN LAUREN renal angiolipoma ovarian cysts Surgical History Surgery Date(Month/Year) section x 2
== END 2024-07-11 16:11 | disposition home or self-care (01) ==
LOC: HO.HSMS 15:35
PROVIDERS: PCP Family Medicine; Visit Provider Psychiatry & Neurology Neurology
DX: G43.719 Chronic migraine without aura, intractable, without status migrainosus (principal)
CPT/HCPCS: 64615

== ENCOUNTER → 2024-07-11 15:35 | Outpatient (BNVA) | payer OTHER, SELFPAY | PROVIDERS: PCP Family Medicine; Visit Provider Psychiatry & Neurology Neurology | DX: G43.719 Chronic migraine without aura, intractable, without status migrainosus (principal) | CPT/HCPCS: 64615; 99211; J0585 ==

== ENCOUNTER 2024-07-19 11:39 | Outpatient (REF) | payer OTHER, SELFPAY ==
--- NOTE | ~2024-07-19 | XR_ITS ---
EXAMINATION: XR CERVICAL SPINE CLINICAL INFORMATION: M54.2 - Cervicalgia COMPARISON: None available. TECHNIQUE: 8 views of the cervical spine, inclusive of bilateral oblique views and flexion and extension views, were obtained. FINDINGS: Normal lateral projections, the C7-T1 interspaces were largely obscured by the patient's shoulder. Straightening of the normal lordosis. Minimal levoconvex scoliosis, apex at C6. No subluxations. No fracture, compression deformity, or suspicious bone lesion. C1-2 articulation and craniocervical junction are intact and aligned. Normal facet alignment. Mild to moderate disc degeneration diffusely with ventral disc osteophytes predominantly seen C3-4, C4-5, and C5-6. Oblique views demonstrate patent neural foramen bilaterally without significant bony narrowing. On flexion, no developing subluxation. On extension, no significant developing subluxation. No evidence of instability is evident. The pre and paravertebral soft tissues are normal. The lung apices are clear. XR/XR cervical spine w flex/ext IMPRESSION: 1. No acute bony abnormalities. 2. Mild to moderate degenerative spondylosis. Mild levoconvex scoliosis. 3. No evidence of instability on flexion and extension. Electronically signed by: Paul Zhang MD 07/21/2024 09:07 AM EDT RP
--- OUTSIDE RECORDS SUMMARY | 2024-07-19 14:07 | XMS_ITS | Patient Health Record ---
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 Name Role Phone AudreyMario Primary Care Provider [...] Nasally Once a day Active Fish Oil [place]-3 1000 MG 1 capsule Orall y Once a day Active Vitamin B12 100 MCG as directed Orally O nce a day Active Cetirizine HCl 10 MG 1 tablet Orally Onc e a day Active hydrOXYzine HCl 25 MG 1 tablet as needed Orally qhs Active Tdhrtfqqfa-PVGW-Iddhrtng 50-300-40 MG 1 tablet as needed Orally [...] Risk Notes Problem New daily persistent headache ([id number] 5) New daily persistent headache (NDPH) (G44.52) Active confirmed Plan Of Treatment Pending Test Test Name Order Date MRI/MRA Head 12/19/2020 Insurance Providers Payer Name Payer Address Payer Phone Subscriber Number Group Number Insured Name Patient Relationship to Insured Coverage Start Date Coverage End Date [facility] [address] [address] [id number] Maya Dodge Self - patient is the insured Medical (General) History Medical History History ICD Code hypercholesterolemia essential HTN LAUREN renal angiolipoma ovarian cysts Surgical History Surgery Date(Month/Year) section x 2
== END 2024-07-19 11:40 | disposition home or self-care (01) ==
LOC: HO.XRAY 11:39
PROVIDERS: PCP Family Medicine; Visit Provider Nurse Practitioner Family
DX: M54.2 Cervicalgia (principal)
CPT/HCPCS: 72052

== ENCOUNTER → 2024-07-19 11:46 | Outpatient (BNV) | payer OTHER, SELFPAY | PROVIDERS: PCP Family Medicine; Visit Provider Radiology Diagnostic Radiology | DX: M47.812 Spondylosis without myelopathy or radiculopathy, cervical region (principal) | CPT/HCPCS: 72052 ==

== ENCOUNTER 2024-10-24 08:25 | Outpatient (AMB) | payer OTHER, SELFPAY ==
--- NOTE | 2024-10-24 08:28 | MHC.OFFVIS ---
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 Required: No Accompanied by: Spouse Allergies amoxicillin (Augmentin) Allergy (Unknown, Verified 07/11/24 15:45) Unknown clavulanic acid (Augmentin) Allergy (Unknown, Verified 07/11/24 15:45) Unknown Medication List - Last Reconciled 10/24/24 by Lisa Ac MD amlodipine 5 mg PO DAILY aspirin (Adult Aspirin Regimen) 81 mg PO DAILY azelastine 2 sprays intranasal BID 30 days cetirizine (Zyrtec) 10 mg PO DAILY PRN cyclobenzaprine 5 mg PO BEDTIME fluticasone propionate 50 mcg/actuation 1 spray intranasal DAILY hydroxyzine HCl 25 mg PO ONCE PRN lisinopril 20 mg PO DAILY mirtazapine 7.5 mg PO BEDTIME omeprazole 20 mg PO DAILY 90 days onabotulinumtoxinA (Botox) 155 units IM rimegepant (Nurtec ODT) 75 mg PO Q OTHER DAY PRN sertraline 75 mg (1.5 x 50 mg) PO DAILY 30 days HPI Comments Details: 59y/o female comes for treatment with botox. ??? Most frequent reported adverse reactions following injection of botox for chronic migraine include neck pain (9%), headache(5%), eyelid ptosis(4%), migraine(4%), muscular weakness(4%), musculuskeletal stiffness(4%), bronchitis(3%), injection site pain (3%), musculoskeletal pain(3%), myalgia(3%), facial paresis(2%), HTN(2%) and muscle spasms(2%) were discussed in detail. ??? Botulinum toxin typeA 200units Lot no [id number] expiration Dec 2026 was diluted with 4 cc of normal saline . ??? Muscles injected- ??? Frontalis 4 sites ??? Procerus 1 site ??? Cloth Seconds Sorter- 2 sites ??? Temporalis- 8 sites ??? Occipitalis- 6 sites ??? Cervical paraspinals- 4 sites ??? Trapezius- 6 sites-10 units each ??? 5 units each in 31 site ??? Total use- 185units ??? Discarded-15units [facility] Medical History Chronic migraine with aura Chronic migraine without aura delivery delivered Family History Mother HTN (hypertension) Depression Degenerative arthritis Father HTN (hypertension) High cholesterol Gout Kidney failure History of quadruple bypass Social History Alcohol intake: current Alcohol intake frequency: holidays/special occasions only Patient Tobacco Use Status: Never used Tobacco Review of Systems ENT Reports Normal hearing present Neuro Reports Normal hearing present Physical Exam Vital Signs: Last Vital Signs Pulse 72 10/24/24 08:29 BP 140/92 H 10/24/24 08:29 Pulse Ox 100 10/24/24 08:29 Oxygen Delivery Method Room Air 10/24/24 08:29 BMI result Body Mass Index 39.7 Const General: cooperative and comfortable Nutritional Appearance: obese Orientation/consciousness: patient oriented x3 Neck Neck: Yes full ROM and Yes supple Resp Effort & Inspection: normal respiratory effort and able to speak in complete sentences Neuro General: patient oriented x3 Cranial nerves: Yes Bilaterally intact EOM present, Yes Normal facial strength present, Yes Midline tongue present, Yes Normal hearing present, Yes Ability to bilaterally rotate head present and Yes Ability to bilaterally elevate shoulders present Cognition (Neuro): normal cognition Gait exam (Neuro): Normal gait present Psych Appearance: grossly normal Mental Status: mental status grossly normal Speech and movement: Normal speech and movement present Office Procedures Botulinum toxin Injection 08086 - Migraine Procedure code (CPT) selection complete Office Meds onabotulinumtoxinA 200 unit solution for injection Performing Provider: Lisa Ac MD Performing Location: [facility] Administered by: Lisa Ac MD on 10/24/24 09:02 Dose Route Admin Location Dispensed Lot Number Expiration Date [facility] Balancing Machine Set Up Worker 185 unit subcut 200 units [id number] ALLERGAN/BOTOX Total Dispensed Waste 200 units 7.5 % Comments: see HPI Assessment & Plan Assessment & Plan (1) Chronic migraine without aura: Code(s): G43.709 - Chronic migraine without aura, not intractable, without status migrainosus Category: Medical Qualifiers: Status migrainosus presence: without status migrainosus Intractability: intractable Qualified Code(s): G43.719 - Chronic migraine without aura, intractable, without status migrainosus Plan Patient tolerated the procedure well she will call with any side effects Orders: Orders AMB Botulinum toxin Injection Today G43.719 - Chronic migraine without aura, intractable, without status migrainosus Coding Level of Care Code Est Pt Level 1 (62679) Diagnoses Intractable chronic migraine without aura and without status migrainosus G43.719 Status migrainosus presence: without status migrainosus Intractability: intractable CPT Codes Botox Injection - Botox 3: 32878 - Migraine ([id number])
[2024-10-24 08:29] VITALS: BP 140/92; PULSE 72; O2SAT 100; BMI 39.7
--- OUTSIDE RECORDS SUMMARY | 2024-10-24 08:40 | XMS_ITS | Patient Health Record ---
Author Organization [facility] Address [address] [place] [address] Care Team Providers Care Passenger Tire Builder Name Role Phone Mario Ventura Primary Care Provider [phone] Unavailable Unavailable Allergies Allergen (clinical drug ingredient) Drug/Non Drug Allergy documented on EMR Reaction Allergy Type Onset Date Status erythromycin Erythromycin rash Drug Allergy A ctive Reason For Referral No Information Medications Medication SIG (Take, Route, Frequency, Duration) Notes Start Date End Date Status Flonase Allergy Relief 50 MCG/ACT 1 spray in each nostril Nasally Once a day Active Fish Oil [place]-3 1000 MG 1 capsule Orall y Once a day Active Vitamin B12 100 MCG as directed Orally O nce a day Active Cetirizine HCl 10 MG 1 tablet Orally Onc e a day Active hydrOXYzine HCl 25 MG 1 tablet as needed Orally qhs Active Qdfbaiktki-RFDP-Lywbsoyw 50-300-40 MG 1 tablet as needed Orally every 4 hrs Active Lisinopril 20 MG 1 tablet Orally qam Active SUMAtriptan Succinate 100 MG 1 tablet at least 2 hours between doses as needed Orally along with 2 ibuprofen Active Rosuvastatin Calcium 5 MG 1 tablet Orally qhs Active acetaZOLAMIDE 250 MG 2 tablet Orally twi ce a day; Duration: 30 day(s) Active Aspirin 81 MG 1 [...] Risk Notes Problem New daily persistent headache (NDPH) (G44.52) Active confirmed Plan Of Treatment Pending Test Test Name Order Date MRI/MRA Head 12/19/2020 Insurance Providers Payer Name Payer Address Payer Phone Subscriber Number Group Number Insured Name Patient Relationship to Insured Coverage Start Date Coverage End Date [facility] / [facility] [employer] PL[employer] [address] [address] [id number] Maya Dodge Self - patient is the insured Medical (General) History Medical History History ICD Code hypercholesterolemia essential HTN LAUREN renal angiolipoma ovarian cysts Surgical History Surgery Date(Month/Year) section x 2
== END 2024-10-24 08:55 | disposition home or self-care (01) ==
LOC: HO.HSMS 08:26
PROVIDERS: PCP Family Medicine; Visit Provider Psychiatry & Neurology Neurology
DX: G43.719 Chronic migraine without aura, intractable, without status migrainosus (principal)
CPT/HCPCS: 64615

== ENCOUNTER → 2024-10-24 08:25 | Outpatient (BNVA) | payer OTHER, SELFPAY | PROVIDERS: PCP Family Medicine; Visit Provider Psychiatry & Neurology Neurology | DX: G43.719 Chronic migraine without aura, intractable, without status migrainosus (principal) | CPT/HCPCS: 64615; 99211; J0585 ==

== ENCOUNTER 2024-11-08 13:26 | Outpatient (AMB) | payer OTHER, SELFPAY ==
[2024-11-08 13:30] VITALS: BP 140/92; PULSE 99; O2SAT 97; BMI 39.0
--- NOTE | 2024-11-08 13:30 | MHC.OFFVIS ---
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 Accompanied by: Spouse Allergies amoxicillin (Augmentin) Allergy (Unknown, Verified 11/08/24 13:31) Unknown clavulanic acid (Augmentin) Allergy (Unknown, Verified 11/08/24 13:31) Unknown Medication List - Last Reconciled 11/08/24 by CRICKET Gonsalez amlodipine 5 mg PO DAILY aspirin (Adult Aspirin Regimen) 81 mg PO DAILY azelastine 2 sprays intranasal BID 30 days cetirizine (Zyrtec) 10 mg PO DAILY PRN cyclobenzaprine 5 mg PO BEDTIME fluticasone propionate 50 mcg/actuation 1 spray intranasal DAILY hydroxyzine HCl 25 mg PO ONCE PRN lisinopril 20 mg PO DAILY mirtazapine 7.5 mg PO BEDTIME omeprazole 20 mg PO DAILY 90 days onabotulinumtoxinA (Botox) 155 units IM rimegepant (Nurtec ODT) 75 mg PO Q OTHER DAY PRN sertraline 75 mg (1.5 x 50 mg) PO DAILY 30 days HPI Comments Details: 59-yr-old female presents for f/u visit for chronic migraine and dizziness. Pt is accompanied by her . Pt reports she is doing a bit better. Has been having less intense headcahes, though still constant. Does note she was having an uptick in her stabbing headaches just prior to her last Botox, but improved since her last Botox injection- which she notes she received abit late as her insurance chnaged. Pt reports she continues to have dizziness, not as continuous as before. Finds that stress, moving eyes, or getting up to fast can trigger the dizziness. She did see PT, in [place], which she enjoyed but did not really help. She tries to take the Azelastine, but may forget to take the azelastine- as was not sure if she could take this with the flonase. She is still on sertraline 75mg qd. She is still trying to take plenty of fluids throughout the day. Denies active GERD or gastritis symptoms. She is compliant with her antihypertensive regimen. 05/12/2024, Previous HPI: Patient comes to discuss strategies to optimize her headache and dizziness treatment plan. She states optimizing the dizziness would be her priority at this point. Pt reports she continues to wake up every day with a headache. Headache and dizziness worsen as the day progresses, sometimes laying down helps but not always. Baseline headache characteristics: Mostly bifrontal/temporla squeezing, or bilateral frontal, retroorbital, occipital squeezing a/w rare sees kaleidoscope aura (3 times in all), photophobia, phonophobia, osmophobia, allodynia, nausea, worsening dizziness, brain fog, activity intolerance. Denies positional component. She also has episodes of intense, sharp, stabbing pain in random areas around her head. Sometimes her head feels like there is popping inside. She has chronic neck pain and tightness- has been told she has arthritis in the past. The Botox helps to decrease the level of the pain, and the pain increases towards the botox cycle. She is taking Nurtec every other day. Sertraline was increased to 50mg in Jan- did not help depression or dizziness- notes that her father had shortly thereafter.. She was started on mirtazapine 7.5 mg q.h.s. in early March, this has helped her sleep. 32oz iced black tea. Also takes water 64 ounces- approx. She is using her CPAP nightly. PCP ordered brain MRI without contrast in March 2024, which was unremarkable. Since Jan 2024, she has also been having frequent episodes of dizziness- where she feels off-balance, like she will fall over, like someone is pushing her from behind. She has not fallen- but has caught herself. Dizziness is worse when the headaches are worse and are a/w nausea. She believes that the dizziness started after she cleaned out her father's room in her parent's house, which at/has significant mold growth. She does use Flonase and an OTC Afrin- regularly since the onset of the dizziness. She has not had vestibular tx yet. States it would be difficult for her to arrange this, as she has been caring for her mother who has Alzheimer's dementia. [facility] Medical History Chronic migraine with aura Chronic migraine without aura delivery delivered Family History Mother HTN (hypertension) Depression Degenerative arthritis Father HTN (hypertension) High cholesterol Gout Kidney failure History of quadruple bypass Social History Alcohol intake: current Alcohol intake frequency: holidays/special occasions only Patient Tobacco Use Status: Never used Tobacco Physical Exam Vital Signs: Last Vital Signs Pulse 99 11/08/24 13:30 BP 140/92 H 11/08/24 13:30 Pulse Ox 97 11/08/24 13:30 Oxygen Delivery Method Room Air 11/08/24 13:30 BMI result Body Mass Index 39.0 Const General: cooperative and no acute distress Orientation/consciousness: patient oriented x3 Resp Effort & Inspection: normal respiratory effort and able to speak in complete sentences Neuro Other: Bilateral posterior cervical tightness, limited cervical range of motion. General: patient oriented x3 Cranial nerves: Yes CN's II-XII intact bilaterally Cognition (Neuro): normal cognition Deep tendon reflexes (DTR's): Right triceps reflex intensity grade: 2+, Left triceps reflex intensity grade: 2+, Rt Biceps (C5, C6): 2+, Left biceps reflex intensity grade: 2+, Right brachioradialis reflex intensity grade: 2+, Left brachioradialis reflex intensity grade: 2+, Right patellar reflex intensity grade: 2+ and Left patellar reflex intensity grade: 3+ Psych Appearance: grossly normal Mental Status: mental status grossly normal Speech and movement: Normal speech and movement present Affect: normal affect Attitude: cooperative Assessment & Plan Assessment & Plan (1) Chronic migraine without aura: Code(s): G43.709 - Chronic migraine without aura, not intractable, without status migrainosus Category: Medical Qualifiers: Status migrainosus presence: without status migrainosus Intractability: intractable Qualified Code(s): G43.719 - Chronic migraine without aura, intractable, without status migrainosus (2) Chronic migraine with aura: Code(s): G43.109 - Migraine with aura, not intractable, without status migrainosus Category: Medical Qualifiers: Status migrainosus presence: without status migrainosus Intractability: intractable Qualified Code(s): G43.E19 - Chronic migraine with aura, intractable, without status migrainosus (3) Cervicalgia of yptaafem-qththfl-crziz region: Code(s): M54.2 - Cervicalgia Category: Medical (4) Vertigo: Code(s): R42 - Dizziness and giddiness Category: Medical Plan Mar 2024 brain MRI without contrast report- unremarkable. 06/04/2021 MRA, MRV- normal. 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 07/19/2024, XR C-spine with flexion and extension- no acute findings, Mild to moderate degenerative spondylosis. Mild levoconvex scoliosis. For overall headache management: It is important to practice good self-care, including but not limited to eating a healthy diet, drinking enough fluids (typically 64 oz per day), maintaining a good sleep routine, and engaging in regular physical activity (typically 30-45 minutes of moderate physical activity 5 days per week). Track headaches Information shared on nonpharmacological migraine treatment interventions, including strategies to reduce photophobia; and information on neuromodulation devices. For dizziness: Contiinue optimizing nasal congestion symptoms- Saline nasal spray q.h.s. Followed by fluconazole nasal spray Then a few minutes after followed by Azalastine 1-2 sprays daily-twice a day Avoid OTC Afrin. For acute headache treatment: Continue Rimegepant ODT (Nurtec ODT) 75mg, 1 tab at onset of headache.. Max of 1 tabs (75mg) per 24 hours. May adjunct with OTC Tylenol 650mg q 4 hours, Ibuprofen 600mg q 6 hours, or Naproxen 440mg q 12 hrs prn. Trial diclofenac 50 mg every 12 hours prn stabbing headache Previous acute migraine medication trials: Sumatriptan injection- made her feel weird all over. Acute migraine medication contraindications: Triptans and DHE at this time due to HTN- poorly controlled. Future consideration: Indomethacin trial For headache prevention medication: Continue Botox untreated 55 units IM every 12 weeks. Increase sertraline from 75 mg to 100mg daily- in hopes this reduces vestibular migraine symptoms. Continue mirtazapine 7.5 mg q.h.s.- primarily for sleep. Continue cyclobenzaprine 5 mg q.h.s. p.r.n.. Previous migraine prevention medication trials: Ajovy-not fully effective. Patient has tried other medications in the past, we will need to confirm them. Migraine prevention medication contraindications: None at this time. Future considerations: Trial of verapamil, candesartan, memantine, retry Ajovy with Botox (alternating 1 with the other every 6 weeks), Qulipta. Medications: New diclofenac potassium 50 mg PO Q12H PRN 30 tabs 1RF stabbing headache 30 days Changed From sertraline 75 mg (1.5 x 50 mg) PO DAILY 30 days 45 tabs 3RF To sertraline 100 mg (2 x 50 mg) PO DAILY 60 tabs 6RF 30 days Coding Level of Care Code Est Pt Level 4 (61156) Diagnoses Intractable chronic migraine without aura and without status migrainosus G43.719 Status migrainosus presence: without status migrainosus Intractability: intractable Intractable chronic migraine with aura and without status migrainosus G43.E19 Status migrainosus presence: without status migrainosus Intractability: intractable Cervicalgia of hzaigdkz-aabzlek-ckpus region M54.2 Vertigo R42
--- OUTSIDE RECORDS SUMMARY | 2024-11-08 13:52 | XMS_ITS | Patient Health Record ---
Author Organization [facility] Address [address] [place] [address] Care Team Providers Care Word Processing Specialist Name Role Phone Mario Ventura Primary Care Provider [phone] Unavailable Unavailable Allergies Allergen (clinical drug ingredient) Drug/Non Drug Allergy documented on EMR Reaction Allergy Type Onset Date Status erythromycin Erythromycin rash Drug Allergy A ctive Reason For Referral No Information Medications Medication SIG (Take, Route, Frequency, Duration) Notes Start Date End Date Status Flonase Allergy Relief 50 MCG/ACT 1 spray in each nostril Nasally Once a day Active Fish Oil [place]-3 1000 MG 1 capsule Orall y Once a day Active Vitamin B12 100 MCG as directed Orally O nce a day Active Cetirizine HCl 10 MG 1 tablet Orally Onc e a day Active hydrOXYzine HCl 25 MG 1 tablet as needed Orally qhs Active Xgcfvmtrws-NJTJ-Oelciiol 50-300-40 MG 1 tablet as needed Orally [...] Risk Notes Problem New daily persistent headache ([id number] 5) New daily persistent headache (NDPH) (G44.52) Active confirmed Plan Of Treatment Pending Test Test Name Order Date MRI/MRA Head 12/19/2020 Insurance Providers Payer Name Payer Address Payer Phone Subscriber Number Group Number Insured Name Patient Relationship to Insured Coverage Start Date Coverage End Date [facility] [place] [facility] [address] [address] [id number] Maya Dodge Self - patient is the insured Medical (General) History Medical History History ICD Code hypercholesterolemia essential HTN LAUREN renal angiolipoma ovarian cysts Surgical History Surgery Date(Month/Year) section x 2
== END 2024-11-08 14:24 | disposition home or self-care (01) ==
LOC: HO.HSMS 13:27
PROVIDERS: PCP Family Medicine; Visit Provider Nurse Practitioner Family
DX: G43.719 Chronic migraine without aura, intractable, without status migrainosus (principal); G43.E19 Chronic migraine with aura, intractable, without status migrainosus; M54.2 Cervicalgia; R42 Dizziness and giddiness
CPT/HCPCS: 99214

== ENCOUNTER → 2024-11-08 13:26 | Outpatient (BNVA) | payer OTHER, SELFPAY | PROVIDERS: PCP Family Medicine; Visit Provider Nurse Practitioner Family | DX: G43.719 Chronic migraine without aura, intractable, without status migrainosus (principal); M54.2 Cervicalgia; R42 Dizziness and giddiness | CPT/HCPCS: 99212 ==

== ENCOUNTER 2025-01-23 13:35 | Outpatient (AMB) | payer OTHER, SELFPAY ==
--- NOTE | 2025-01-23 13:41 | A.OFFVIS_ITS ---
Vital Signs 01/23/25 13:42 Height 4 ft 8 in Weight 178 lb 8 oz BMI 40.0 BP 148/90 H Blood Pressure Location Rt brachial Position Sitting Pulse 84 Pulse Source Pulse Oximeter Pulse Oximetry (%) 98 Oxygen Delivery Method Room Air Intake Visit Reasons: 3mon Botox f/u Intake Note: Botox 200 Bi Architect Required: No Accompanied by: Spouse Allergies amoxicillin (Augmentin) Allergy (Unknown, Verified 01/23/25 13:42) Unknown clavulanic acid (Augmentin) Allergy (Unknown, Verified 01/23/25 13:42) Unknown Medication List - Last Reconciled 01/23/25 by Lisa Ac MD amlodipine 5 mg PO DAILY aspirin (Adult Aspirin Regimen) 81 mg PO DAILY azelastine 2 sprays intranasal BID 30 days cetirizine (Zyrtec) 10 mg PO DAILY PRN cyclobenzaprine 5 mg PO BEDTIME diclofenac potassium 50 mg PO Q12H PRN 30 days fluticasone propionate 50 mcg/actuation 1 spray intranasal DAILY hydroxyzine HCl 25 mg PO ONCE PRN lisinopril 20 mg PO DAILY mirtazapine 7.5 mg PO BEDTIME omeprazole 20 mg PO DAILY 90 days onabotulinumtoxinA (Botox) 155 units IM rimegepant (Nurtec ODT) 75 mg PO Q OTHER DAY PRN sertraline 100 mg (2 x 50 mg) PO DAILY 30 days HPI Comments Details: 60y/o female comes for treatment with botox. ??? Most frequent reported adverse reactions following injection of botox for chronic migraine include neck pain (9%), headache(5%), eyelid ptosis(4%), migraine(4%), muscular weakness(4%), musculuskeletal stiffness(4%), bronchitis(3%), injection site pain (3%), musculoskeletal pain(3%), myalgia(3%), facial paresis(2%), HTN(2%) and muscle spasms(2%) were discussed in detail. ??? Botulinum toxin typeA 200units Lot no [id number] expiration Feb 2027 was diluted with 4 cc of normal saline . ??? Muscles injected- ??? Frontalis 4 sites ??? Procerus 1 site ??? New Car Inspector- 2 sites ??? Temporalis- 8 sites ??? Occipitalis- 6 sites ??? Cervical paraspinals- 4 sites ??? Trapezius- 6 sites-10 units each ??? 5 units each in 31 site ??? Total use- 185units ??? Discarded-15units [facility] Medical History Chronic migraine with aura Chronic migraine without aura delivery delivered Family History Mother HTN (hypertension) Depression Degenerative arthritis Father HTN (hypertension) High cholesterol Gout Kidney failure History of quadruple bypass Social History Alcohol intake: current Alcohol intake frequency: holidays/special occasions only Patient Tobacco Use Status: Never used Tobacco Review of Systems ENT Reports Normal hearing present Neuro Reports Normal hearing present Physical Exam Vital Signs: Last Vital Signs Pulse 84 01/23/25 13:42 BP 148/90 H 01/23/25 13:42 Pulse Ox 98 01/23/25 13:42 Oxygen Delivery Method Room Air 01/23/25 13:42 BMI result Body Mass Index 40.0 Const General: cooperative and comfortable Nutritional Appearance: obese Orientation/consciousness: patient oriented x3 Neck Neck: Yes full ROM and Yes supple Resp Effort & Inspection: normal respiratory effort and able to speak in complete sentences Neuro General: patient oriented x3 Cranial nerves: Yes Bilaterally intact EOM present, Yes Normal facial strength present, Yes Midline tongue present, Yes Normal hearing present, Yes Ability to bilaterally rotate head present and Yes Ability to bilaterally elevate shoulders present Cognition (Neuro): normal cognition Gait exam (Neuro): Normal gait present Psych Appearance: grossly normal Mental Status: mental status grossly normal Speech and movement: Normal speech and movement present Office Procedures Botulinum toxin Injection 61374 - Migraine Procedure code (CPT) selection complete Office Meds onabotulinumtoxinA 200 unit solution for injection Performing Provider: Lisa Ac MD Performing Location: [facility] Documented (not given) by: Lisa Ac MD on 01/23/25 14:23 Dose Route Admin Location Dispensed Lot Number Expiration Date [facility] [id number][NOTE 3] [employer] 200 unit subcut ea Total Dispensed Waste n/a n/a Assessment & Plan Assessment & Plan (1) Chronic migraine without aura: Code(s): G43.709 - Chronic migraine without aura, not intractable, without status migrainosus Category: Medical Qualifiers: Status migrainosus presence: without status migrainosus Intractability: intractable Qualified Code(s): G43.719 - Chronic migraine without aura, intractable, without status migrainosus Plan Patient tolerated the procedure well she will call with any side effects Orders: Orders AMB Botulinum toxin Injection Today G43.719 - Chronic migraine without aura, intractable, without status migrainosus Medications: New onabotulinumtoxinA 200 units subcut ONCE 1 ea 0RF Migraine G43.719 - Chronic migraine without aura, intractable, without status migrainosus Coding Level of Care Code Est Pt Level 1 (86846) Diagnoses Intractable chronic migraine without aura and without status migrainosus G43.719 Status migrainosus presence: without status migrainosus Intractability: intractable CPT Codes Botox Injection - Botox 3: 90546 - Migraine ([id number])
[2025-01-23 13:42] VITALS: BP 148/90; PULSE 84; O2SAT 98; BMI 40.0
--- OUTSIDE RECORDS SUMMARY | 2025-01-23 17:37 | XMS_ITS | Patient Health Record ---
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 Name Role Phone Mario Ventura Primary Care Provider Gal Palma Unavailable Unavailable [...] Nasally Once a day Active Fish Oil [place]-3 1000 MG 1 capsule Orall y Once a day Active Vitamin B12 100 MCG as directed Orally O nce a day Active Cetirizine HCl 10 MG 1 tablet Orally Onc e a day Active hydrOXYzine HCl 25 MG 1 tablet as needed Orally qhs Active Uhixemgefm-NFIA-Ywutdoks 50-300-40 MG 1 tablet as needed Orally [...] Risk Notes Problem New daily persistent headache ([id number] 5) New daily persistent headache (NDPH) (G44.52) Active confirmed Plan Of Treatment Pending Test Test Name Order Date MRI/MRA Head 12/19/2020 Insurance Providers Payer Name Payer Address Payer Phone Subscriber Number Group Number Insured Name Patient Relationship to Insured Coverage Start Date Coverage End Date [facility] / [facility] [place] [facility] [place] [address] [address] [id number] Maya Dodge Self - patient is the insured Medical (General) History Medical History History ICD Code hypercholesterolemia essential HTN LAUREN renal angiolipoma ovarian cysts Surgical History Surgery Date(Month/Year) section x 2
== END 2025-01-23 16:14 | disposition home or self-care (01) ==
LOC: HO.HSMS 13:36
PROVIDERS: PCP Family Medicine; Visit Provider Psychiatry & Neurology Neurology
DX: G43.719 Chronic migraine without aura, intractable, without status migrainosus (principal)
CPT/HCPCS: 64615

== ENCOUNTER → 2025-01-23 13:35 | Outpatient (BNVA) | payer OTHER, SELFPAY | PROVIDERS: PCP Family Medicine; Visit Provider Psychiatry & Neurology Neurology | DX: G43.719 Chronic migraine without aura, intractable, without status migrainosus (principal) | CPT/HCPCS: 64615; 99211; J0585 ==